=== PATIENT | male | born 1975 | race Caucasian/White ===

== ENCOUNTER 2018-04-18 17:02 | Emergency (ER) | payer OTHER ==
[~2018-04-18] VITALS: Ht 172.7 cm; Wt 72.6 kg
[2018-04-18 17:34] LABS: ABSOLUTE NEUTROPHILS 3.3 thou/uL (1.4-8.2); BASOPHILS 0.5 % (0.0-2.0); EOSINOPHILS 1.1 % (0.0-3.0); HEMATOCRIT 42.5 % (42.0-52.0); HEMOGLOBIN 14.7 gm/dL (14.0-18.0); LYMPHOCYTES 40.6 % (24.0-44.0); MCH 30.1 pg (26.0-34.0); MCHC 34.5 g/dL (28.0-37.0); MCV 87.1 fL (80.0-100.0); MONOCYTES 6.5 % (1.0-8.0); PLATELET COUNT 252 thou/uL (150-400); POLYS 51.3 % (36.0-66.0); RBC 4.88 mil/uL (4.50-6.00); RDW 13.3 % (10.5-14.5); WBC 6.4 thou/uL (4.0-11.0)
[2018-04-18 17:37] LABS: ANION GAP 11 mmol/L (7-16); BUN 13 mg/dL (7-18); CALCIUM 9.1 mg/dL (8.5-10.1); CHLORIDE 102 mmol/L (98-107); CO2 24 mmol/L (21-32); CREATININE 0.7 mg/dL (0.7-1.3); GLUCOSE 112 mg/dL (74-106); POTASSIUM 4.1 mmol/L (3.5-5.1); SODIUM 137 mmol/L (136-145)
[2018-04-18 17:46] LABS: ALBUMIN 4.1 g/dL (3.4-5.0); LIPASE 157 U/L (73-393); SGOT 30 U/L (15-37); SGPT 55 U/L (30-65); TOTAL BILIRUBIN 0.4 mg/dL (<0.1-1.0); TROPONIN-I <0.06 ng/mL (<0.06)
[2018-04-18 18:08] LABS: URINE BILIRUBIN NEGATIVE (Negative); URINE BLOOD NEGATIVE (Negative); URINE CLARITY CLEAR; URINE COLOR YELLOW; URINE GLUCOSE-RANDOM* NEGATIVE (Negative); URINE KETONES NEGATIVE (Negative); URINE LEUKOCYTES-REFLEX NEGATIVE (Negative); URINE NITRITE-REFLEX NEGATIVE (Negative); URINE PROTEIN (DIPSTICK) NEGATIVE (Negative); URINE SPECIFIC GRAVITY 1.015 (1.005-1.035); URINE UROBILINOGEN 0.2 E.U./dl (0.2-1.0)
[2018-04-18] MEDS ORDERED: CYCLOBENZAPRINE5 MG PO (18:34)
[2018-04-18] MEDS ORDERED: NAPROSYN500 MG PO (18:34)
[2018-04-18] MEDS ORDERED: VENTOLIN HFA 1818 GM INH (18:34)
[2018-04-18 18:49] VITALS: BP 122/74
--- NOTE | 2018-04-19 07:53 | EKG ---
[address] [place] [address] ELECTROCARDIOGRAM REPORT Name: JORDEN AVILA Room #: DEP LAURITA Escalera#: [id number] Admission: 04/18/18 Attend Phys: Discharge: 04/18/18 Date of : 71 Report #: [id number] THIS REPORT FOR: //name// [facility] ED Test Date: 2018-04-18 Test Time: 17:11:50 Pat Name: JORDEN AVILA Department: Room: Gender: [employer] Operator: : 1975 Requested By: Marcy Silva Order Number: [id number] MD: Josef Valerio Measurements Intervals [place] Rate: 56 P: 57 [place]: 169 QRS: 26 QRSD: 92 T: 23 QT: 400 QTc: 387 Interpretive Statements Sinus bradycardia Otherwise normal tracing No previous ECG available for comparison Electronically Signed On 04-19-2018 7:53:22 MACHINES TECHNICIAN by Josef Valerio [email or web address] <ELECTRONICALLY SIGNED> By: Josef Valerio MD, [facility] 04/19/18 0753 1711 1711 Josef Valerio MD, FAC /EPI
== END 2018-04-18 18:55 | disposition home or self-care (01) ==
LOC: ER 17:02
PROVIDERS: Physician Assistant
DX: R09.1 Pleurisy (principal); R42 Dizziness and giddiness